=== PATIENT | male | born 1945 | race Caucasian/White ===

== ENCOUNTER → 2023-07-15 08:08 | Outpatient (REF) | payer MEDICARE, SELFPAY | LOC: HWRAD 08:08 | PROVIDERS: ATTENDING PHYSICIAN Nurse Practitioner Adult Health | DX: D44.0 Neoplasm of uncertain behavior of thyroid gland (principal) | CPT/HCPCS: 76536 ==

== ENCOUNTER 2025-02-10 13:02 | Inpatient (IN) | payer MEDICARE, SELFPAY ==
[2025-02-09 23:22] VITALS: BP 158/92
[2025-02-09 23:42] LABS: Hematocrit 38.6 % (39.0-52.0); Hemoglobin 13.9 g/dL (13.0-18.0); Mean Corp Hgb Conc. 36.0 g/dL (33.0-37.0); Mean Corpuscular Volume 93.7 fL (80.0-94.0); Platelet Count 170 10^3/uL (130-400); Red Cell Dist. Width 11.9 % (11.5-14.5)
[2025-02-10] VITALS (29 sets, daily range): BP systolic 109–165; BP diastolic 61–92
[2025-02-10 00:07] LABS: Blood Urea Nitrogen 25 mg/dl (9-20); Calcium 10.2 mg/dl (8.4-10.2); Carbon Dioxide 27 mmol/L (22-30); Chloride 110 mmol/L (98-107); Glucose 141 mg/dl (70-99); Potassium 4.3 mmol/L (3.5-5.1); Sodium 141 mmol/L (135-145); eGFR > 60.00
[2025-02-10 02:24] LABS: Urine Character Clear (Clear)
--- NOTE | 2025-02-10 02:26 | DOWNTIME ---
There was a [facility] [employer] Developer Downtime on 02/10/2025 from 0100 to 02/10/2025 at 0215. Downtime documentation of patient's care, including medication administrations, has been reconciled in the electronic record per guidelines. Refer to the
patient's paper chart under the miscellaneous tab to see printed paper medication records and downtime forms.
[2025-02-10 02:27] LABS: Urine Red Blood Cell >100 /HPF (0-2); Urine Squamous Cell 0-2 /LPF (Few); Urine White Cell 50-60 /HPF (0-5)
[2025-02-10 02:28] LABS: Urine White Cell Cast 0-2 /LPF
--- NOTE | 2025-02-10 02:47 | ED.GENMED ---
History of Present Illness
General
Chief Complaint: Abdominal Pain
Source: patient
Exam Limitations: none
Time Seen by Provider: 02/10/25 02:24
Nursing documentation reviewed up to this point in time: agreed with
History of Present Illness
History of Present Illness:
Note:
CHIEF COMPLAINT(S)
Abdominal pain and vomiting.
HISTORY OF PRESENT ILLNESS
The patient is an 79-year-old male with pmh of CVA, hlp, who presented with abdominal pain and episodes of vomiting. She reported that her symptoms began today after having lunch, subsequently experiencing nausea and vomiting, which occurred four to
five times today. She describes the abdominal pain as being localized, and it worsens upon palpation. She expressed concern over the possibility of radiating pain but did not mention any involvement of the groin. She has no known allergies to
medications but does not take morphine, although not due to an allergy. She takes fish oil and aspirin. The patient has not experienced similar pain in the past, except related to constipation. He has prior hx of appendectomy.
SOCIAL DETERMINANTS AFFECTING HEALTH
The patient expresses a degree of fear regarding the source and nature of her pain, potentially indicating stress or anxiety related to health concerns.
PHYSICAL EXAM
General: Alert, no acute distress.
Skin: Warm, dry.
Head: Normocephalic, atraumatic.
Neck: Supple, trachea midline.
Eye, Ears, Nose, Mouth, and Throat: Oral mucosa moist.
Cardiovascular: Normal peripheral perfusion, No edema.
Respiratory: Respirations are non-labored.
Gastrointestinal: Tender abdomen upon palpation, nondistended. +Left CVA tenderness.
Back: Normal range of motion, Normal alignment.
Musculoskeletal: Normal ROM, normal strength.
Neurological: Alert and oriented to person, place, time, and situation, No focal neurological deficit observed.
Psychiatric: Cooperative, mood and affect appropriate but anxious regarding his symptoms.
PROBLEM LIST
Acute:
- Abdominal pain
- Vomiting
PLAN
- Administered pain medication to manage abdominal discomfort.
- cbc, cmp, lipase
- CT ab and pelvis with IV contrast
DIFFERENTIAL DIAGNOSIS
The Differential Diagnosis includes, in no particular order and is not limited to:
1. Gastroenteritis
2. Peptic ulcer disease
3. Gallbladder disease (cholecystitis or cholelithiasis)
4. Pancreatitis
5. Small bowel obstruction
6. Mesenteric ischemia
7. Appendicitis
8. Diverticulitis
9. Renal colic
10. Abdominal aortic aneurysm (AAA)
Disposition:
SUMMARY OF ENCOUNTER
An 79-year-old male presented to the emergency department with concerns of abdominal pain and vomiting. Imaging revealed a 4 mm obstructing proximal left ureteral calculus with moderate hydronephrosis and perinephric stranding. Urinalysis indicated
the presence of white blood cells and leukocyte esterase, raising concern for infection, though the patient was afebrile. After a bedside evaluation by urology, a plan for surgical intervention later in the day was made. The patient was referred for
admission under the hospitalist service for further management.
DISPOSITION
Admit.
ASSESSMENT
The patient is experiencing obstructive uropathy due to a ureteral calculus, causing moderate hydronephrosis and potentially leading to renal complications if not addressed. There is concern for a urinary tract infection despite the absence of fever.
MANAGEMENT OF THE PATIENTS CARE WAS DISCUSSED WITH
The case was discussed with the urology team, who evaluated the patient at bedside and decided on surgical intervention. Additionally, the patients daughter was informed and updated on the plan of care.
INDEPENDENT REVIEW OF LABS AND INTERPRETATION OF TESTS
My independent review of the urinalysis indicates the presence of white blood cells and leukocyte esterase, which is concerning for a possible urinary tract infection.
PATIENT EDUCATION AND COUNSELING
The patients daughter was informed of the findings and the plan for surgical intervention. The potential need for further management should any complications arise was discussed.
MEDICAL DECISION MAKING
- Number and Complexity of Problems Addressed: Chronic conditions affecting care include the patients history of cerebrovascular accident (CVA) and hyperlipidemia. Differential diagnosis includes ureteral calculus with hydronephrosis and potential
infection.
- Data:
Category 1: My independent interpretation of the imaging showed a 4 mm proximal left ureteral calculus. Urinalysis was reviewed identifying signs of a potential urinary tract infection.
Category 3: Discussions were held with the urology team regarding the surgical plan and with the patients daughter regarding the management approach and admission for further care.
DIAGNOSIS
- Ureteral Calculus, obstructing, leading to hydronephrosis (ICD-10: N20.0)
- Potential Urinary Tract Infection (ICD-10: N39.0)
Past History
Past History
ED Past Medical History: Hypercholesterolemia and Other (Arthritis)
ED Past Surgical History: Appendectomy, Orthopedic and Other (Hernia)
Social History
Tobacco: Former smoker
Alcohol: Occasional
Drug: None
Living: alone
Review of Systems
Review of Systems
All Other Systems: ROS reviewed and negative except as documented in HPI and ROS
Phy Exam
Physical Exam
Physical Exam:
see hpi
Course
Orders/Labs/Results
Orders:
Orders
02/09/25 23:26
Abdomen Xray - 1 View [CR Abdomen - 1 View] Urgent
Comment:
Reason For Exam: abd pain
02/09/25 23:32
BMP [Basic Metabolic Panel] Urgent
Complete Blood Count/No Diff Urgent
02/10/25 01:40
Urinalysis Reflex To Culture Urgent
Urine Microscopic Reflex Cult Urgent
Urine Culture Urgent
CAROLYN Source: U
Specimen Description:
02/10/25 02:25
CT Abd/pelvis W Iv Cont Urgent
Comment:
Reason For Exam: left flank pain, llq pain
0.9% Sodium Chloride 500 ml [Nss] 500 ml IV BOLUS
Morphine Sulfate 4 mg IV NOW STA
Ondansetron Injectable [Zofran] 4 mg IV NOW STA
02/10/25 04:35
HYDROmorphone [Dilaudid] 0.5 mg IV NOW STA
02/10/25 06:25
UROLOGY CONSULT Urgent
Consulting Provider: Demetri Lovett
Was physician already notified: Yes
02/10/25 14:41
Surgical Procedure As Directed
Surgical Procedure: left ureteroscopy
Abnormal Lab Results
02/09/25 02/10/25
23:32 01:40
RBC 4.12 L 10^6/uL
(4.70-6.10)
Hct 38.6 L %
(39.0-52.0)
MCH 33.7 H pg
(27.0-31.0)
Chloride 110 H mmol/L
(98-107)
BUN 25 H mg/dl
(9-20)
Glucose 141 H mg/dl
(70-99)
Ur Occult Blood Reflex 4+ A
(Negative)
Leukocyte Esterase Rfl 1+ A
(Negative)
Urine RBC >100 A /HPF
(0-2)
Urine WBC (Reflex) 50-60 A /HPF
(0-5)
Urine Albumin (Reflex) 1+ A
(Neg - Trace)
02/09/25 23:32
02/09/25 23:32
Vital Signs
Initial and Last Documented VS:
Initial Vital Signs
Temp Pulse Resp BP Pulse Ox
98.1 F 60 26 158/92 96
02/09/25 23:22 02/09/25 23:22 02/09/25 23:22 02/09/25 23:22 02/09/25 23:22
Last Documented Vital Signs
Temp Pulse Resp BP Pulse Ox
98.1 F 96 17 138/64 94
02/09/25 23:22 02/10/25 08:00 02/10/25 08:00 02/10/25 08:00 02/10/25 08:00
*Pulse Oximetry
SaO2: 96
Oxygen Mode of Delivery: Room air
Patient hypoxic: no
*Critical Care Note
Total Time (30-74mins, 75-104mins- exclusive of procedures): Not Applicable
ED Attending Note
-
Portions of this chart may have been created with voice recognition software.� Occasional wrong word or��sound alike� substitutions may have occurred due to the inherent limitations of voice recognition software.
Discharge Plan
Departure
Patient Disposition: Admit
Date of Disposition: 02/10/25
Time of Disposition: 07:21
Admit to: Med/Surg
Presentation/result/management discussed w/ accepting MD/DO: Hospitalist
Patient with high blood pressure during this ER visit?: Yes
Condition: Fair
Discharge Problem:
Calculus of left ureter
Prescriptions:
No Action
fenofibrate 160 mg Tablet
160 mg PO DAILY
timolol maleate 0.5 % drops
1 drp BOTH EYES BID
atorvastatin 20 mg tablet
20 mg PO DAILY
Theragen Tablet
1 tab PO DAILY
omega 9-xpd-zan-fish oil [Fish Oil] 1,000 (120-180) mg Capsule
2 cap PO DAILY
Referrals:
UNKNOWN - PT DOES,NOT KNOW [Family Provider]
Interventions
Interventions:
*Risk Screen - Suicide Last Done: 02/09/25 23:22
*General Assessment Last Done: 02/10/25 07:24
*Neglect/Abuse Screening Last Done: 02/09/25 23:22
*ED- Fall Risk Assessment Last Done: 02/10/25 07:24
*ED COVID-19 Vaccine History Last Done: 02/10/25 07:24
*ED Influenza Vaccine History Last Done: 02/10/25 07:24
GI-Fdyyaa-Ndxohlaxxz Assessment Last Done: 02/10/25 07:29
Discharge Date and Time
Print Language: FRENCH
[2025-02-10] MEDS: ZOFRAN 4 MG IV (02:50)
[2025-02-10] MEDS: MORPHINE SULFATE 4 MG IV (02:50)
[2025-02-10] MEDS: NSS 500 IV (02:51)
[2025-02-10] MEDS: DILAUDID 0.5 MG IV (04:38)
--- NOTE | 2025-02-10 07:38 | CONS.URO ---
Consultation
-
Date/Time Consultation Requested: 02/10/2025 0640
Date/Time Consultation Performed: 02/10/2025 0650
Requesting Provider: ED
Performing Provider: Bony
Reason for Consultation: left ureteral stone
Medical History
History of Present Illness
79 yo male presented to ED with left flank pain.
Past Medical History
Past Medical History: Other (Hypercholesterolemia, Arthritis)
Past Surgical History: Other (Appendectomy, Orthopedic, Hernia)
Family History
Family History: Reviewed & Not Pertinent
Allergies/Home Medications
Allergies
Allergy/AdvReac Type Severity Reaction Status Date / Time
No Known Allergies Allergy Verified 02/09/25 23:24
Home Medications
�Medication �Instructions �Recorded �Confirmed �Type
fenofibrate 160 mg tablet 160 mg PO DAILY High cholesterol 10/02/17 02/10/25 History
multivitamin 1 tab PO DAILY Supplement 04/05/22 02/10/25 History
omega 6-lbu-umi-fish oil 100 1 cap PO BID Supplement 04/05/22 02/10/25 History
mg-160 mg-1,000 mg capsule (Fish
Oil)
timolol maleate 0.5 % eye drops 1 drp BOTH EYES BID Eye condition 04/05/22 02/10/25 History
Physical Exam
Vital Signs
Vital Signs
Temp Pulse Resp BP Pulse Ox
98.1 F 96 15 149/75 93
02/09/25 23:22 02/10/25 07:23 02/10/25 07:23 02/10/25 07:23 02/10/25 07:31
Lab / Testing Results
Laboratory Results
02/09/25 23:32
02/09/25 23:32
Physical Exam
General: Well Developed and No Apparent Distress
HEENT: Normocephalic
GI: Non Distended and Tender (mildly on left)
Genito-urinary: Costovertebral Angle Tend (miled, left)
Skin: Warm
Neuro: Awake
Psych: Calm
Assessment / Plan
-
Left Ureteral Stone, obstructing
posted for OR today
Data Reviewed
-
CT Scan: Image personally visualized and interpreted
Old Records: Reviewed
--- NOTE | 2025-02-10 08:21 | HPS.HSE ---
Addendum entered and electronically signed by Nelli Waddell MD 02/10/25 14:42:
see update note for addendum
Original Note:
Family Physician
-
Family Physician: Dr. Mariee
Chief Complaint
-
Left flank pain
History of Present Illness
79-year-old male with past medical history of RAVI, hyperlipidemia, CVA presented to the ER reporting left-sided flank pain.
Patient was seen along with his daughter at bedside, during the encounter patient appeared confused and slow to answer the questions, but was able to recollect most of the history about his pain. He reports that the pain was acute in onset, 11/29,
localized to the left flank and nonradiating. He remembers taking pain medication, but was not able to recall the name. Pain was associated with nausea/vomiting. No fever/chills, hematuria. No similar episodes in the past. Patient called 911
and was brought to the ER.
Medical History
Past Medical History
Past Medical History: Reports CVA and Hypercholesterolemia
Additional Past Medical History:
RAVI, glaucoma
Past Surgical History: Reports Appendectomy
Additional Past Surgical History:
right inguinal hernia repair, left shoulder repair
Social History
Tobacco: Former Smoker
Alcohol: Occasional
Drug: None
Living: Alone
Employment: Not Employed
Family History
Family History: Not pertinent
Allergies / Home Medications
Allergies reflects when Allergies were last updated in [employer].
Home Medications with original date entered in [employer]
Allergy/Medication List:
Allergies
Allergy/AdvReac Type Severity Reaction Status Date / Time
No Known Allergies Allergy Verified 02/09/25 23:24
Home Medications
fenofibrate 160 mg tablet 160 mg PO DAILY High cholesterol 10/02/17
timolol maleate 0.5 % eye drops 1 drp BOTH EYES BID Eye condition 04/05/22
atorvastatin 20 mg tablet 20 mg PO DAILY 02/10/25
omega 3-usu-kdp-fish oil 1,000 mg (120 mg-180 mg) capsule (Fish Oil) 2 cap PO DAILY 02/10/25
therapeutic multivitamin 1 tab PO DAILY 02/10/25
Review of Systems
-
A 12 point ROS was completed and negative except as noted: Yes
Physical Exam
Vital Signs
Vital Signs
Temp Pulse Resp BP Pulse Ox
98.1 F 96 17 138/64 94
02/09/25 23:22 02/10/25 08:00 02/10/25 08:00 02/10/25 08:00 02/10/25 08:00
Physical Exam
General: No Apparent Distress and Other (Appears confused)
HEENT: NormoCephalic, Moist mucous membranes and Atraumatic
Respiratory: Clear
Cardiac: S1/S2 and Regular Rhythm
GI: Soft, Non Tender, Non Distended and Normal Bowel Sounds
Genito-urinary: No costovertebral tender
Skin: Warm and Dry
Neuro: Awake, Alert and Other (AO X 2)
Psych: Confused
Laboratory Results
-
02/09/25 23:32
02/09/25 23:32
Impression/Plan
-
IMPRESSION
79-year-old male presenting with left-sided flank pain, nausea/vomiting.
PLAN:
#Left ureteral calculus
#UTI
Patient is afebrile, no elevated white count- patient is not septic
U/a with evidence of infection- leuc est +, WBC+
Urine culture pending
CT abdomen/pelvis�4 mm obstructing proximal left ureteral calculus with moderate hydronephrosis and perinephric stranding.
Urology consulted
Plan on ureteroscopic stone extraction.
N.p.o.
IV fluids
IV ceftriaxone
Adequate pain control with morphine, ketorolac, Tylenol
Monitor vitals
Monitor white count
#Delirium
Likely due to UTI versus sedating pain medications
Delirium precautions
Frequent reorientation
Monitor I&O's
#RAVI
Patient uses CPAP at home at night
Daughter says that she is going to get his home CPAP machine
#Hypercholesterolemia
Will hold off on atorvastatin, fenofibrate for now.
Diet�n.p.o.
DVT prophylaxis�SCDs
Full code
--- NOTE | 2025-02-10 09:51 | EDRN ---
Assisted with urinal - voided 375 ml - . strained, no stone. Temp 99.4. - still unsteady and not mentally sharp ( see earlier assessment). Resident notified and requersted order for Tylenol .
[2025-02-10] MEDS: OFIRMEV 100 IV (10:02)
[2025-02-10] MEDS: NSS 1000 IV ×2 (10:21→23:57)
--- NOTE | 2025-02-10 11:18 | EDCM ---
CM reviewed chart and met with pt and daughter bedside in ED. Pt lives alone, split level home, 2 [address], 6 steps to bedroom and full bath.
Independent in ADLs, personal care and ambulation at baseline. Still drives. Only DME is CPAP.
Confirms prescription coverage.
Hx [facility], no hx SNF.
PCP: Dr Mariee
Pharmacy: [facility] in [place]
CM will continue to follow for all discharge planning needs.
[2025-02-10] MEDS: STERILE WATER FOR INJECTION 10 ML IV (12:29)
[2025-02-10] MEDS: ROCEPHIN 1000 MG IV (12:29)
--- NOTE | 2025-02-10 14:37 | W.PN.UPDATE ---
Update Note
Progress Note Update
I have personally supervised the history, physical exam, medical decision-making, and care plan for this patient in conjunction with the resident. I have reviewed and discussed the resident�s documentation and findings. I confirm that this note
accurately reflects my supervision and input in the care of this patient.
Briefly 79 y/o M, hx RAVI, hyperlipidemia, CVA presented to ER yesterday evening with L flank pain, along with nausea. Also confused per daughter. In ER, found to have 4mm L sided ureteral stone with hydronephrosis along with concern for UTI. He was
seen by Urology who will plan OR today for stent procedure. IVF, IV Abx and pain meds were ordered in ER.
Physical Exam
General: No Apparent Distress and Other (Appears confused)
HEENT: Normocephalic, Moist mucous membranes and Atraumatic
Respiratory: Clear
Cardiac: S1/S2 and Regular Rhythm
GI: Soft, Non Tender, Non Distended and Normal Bowel Sounds
Genito-urinary: No costovertebral tender
Skin: Warm and Dry
Neuro: Awake, Alert and Other (AO X 2)
Psych: Confused
Assessment:
Complicated UTI in male
L ureteral stone
- CT: 5.4 mm obstructing stone within the proximal left ureter with associated moderate left-sided hydroureteronephrosis. There is asymmetric left-sided perinephric edema/stranding
- UA suggestive of UTI
- NPO/IVF
- pain control, anti-emetics
- Rocephin day 1
- Urology consulted; for OR Stenting today
TME in setting of UTI, pain meds
- monitor mentation
RAVI on CPAP
- family to bring in own machine
HLD - hold statin
DVT ppx: SCDs
Code: Full
--- NOTE | 2025-02-10 15:50 | W.IMMPOSTOP ---
Surgical Immed Post Op Note
-
Primary Surgeon: Bony
Assisting Surgeon: Greer
Pre-op Diagnosis: left ureteral stone
Post-op Diagnosis: same
Procedure Performed: left ureteroscopy, laser lithotripsy, basket extraction, stenting
Anesthesia Type: gen
Specimen / Cultures: stone fragments
Estimated Blood Loss: 1 ml
Complications: none
Operative Findings: proximal left
--- NOTE | 2025-02-10 16:50 | PTCARENOTE ---
Pt received from PACU s/p L ureteroscopy. AAOx2, disoriented to place. VSS. Remains on 2L nasal cannula at this time. IVF infusing per order. SCDs in place. Pt tolerating liquids. Assessment documented. Pt resting in bed, call cowan in reach.
[2025-02-10 18:49] LABS: Glucose - Point of Care 175 mg/dl (70-99)
--- NOTE | 2025-02-10 18:54 | W.PN.UPDATE ---
Update Note
Progress Note Update
Cross-cover--> RN and family noticed patient had more confusion, word findings difficulty, and paresthesia and asked to evaluate him. I came and evaluated him immediately. He had been having confusion all day long and paresthesia in lower legs more
pronounced in his left since 5:45p.m. Stroke alert was called. Discussed with daughters and LKN at 12 noon 02/09/2025. He does take ASA but he has been inconsistent lately and not taken over the last 2 days. No anticogulant use. No N/V/D. No CP or
SOB. No fever or chills.
P/E:
Non toxic appearance but encephalopathic
Heart RRR, S1 S2, no M/R/G
Lungs CTA B/L
Abdomen soft no tender or distended
Neuro Alert and oriented x1, power bulk and tone normal, sensory mild deficit in left distal LE, neglect in left side, Dysarthria+, DTR 2+ symmetrically, all CN intact, finger to nose test normal, +Inattention.
A/P:
Likely Toxic Metabolic encephalopathy multifactorial etiology anesthesia/meds, hospitalization, possible UTI. Less likely Stroke although not completely ruled out yet (NIH score 4 on my evaluation).
Discussed with Urology, Dr Lovett who clears him to get anticoagulation or antiplatelets as indicated.
Discussed with Neurology fellow from [facility], Dr Cortez.
Seen CT brain, CTA head and neck and CT perfusion brain and discussed findings with neurology.
Neuro recommended loading dose DAPT (aspirin 325 mg and then 81 mg and Plavix 300 mg and then 75 mg) and statin (checking fasting lipids in am) and brain MRI. Out of the time window for TNK and also non disabling symptoms at the moment.
Further recommendations upon reevaluation by primary team in a.m.
[2025-02-10 19:09] LABS: Hematocrit 39.9 % (39.0-52.0); Hemoglobin 14.0 g/dL (13.0-18.0); Mean Corp Hgb Conc. 35.1 g/dL (33.0-37.0); Mean Corpuscular Volume 95.2 fL (80.0-94.0); Platelet Count 149 10^3/uL (130-400); Red Cell Dist. Width 12.3 % (11.5-14.5)
[2025-02-10 19:19] LABS: APTT 29.0 Sec (23.4-35.0); INR 1.08; PT 14.5 Sec (11.4-14.6)
[2025-02-10 19:25] LABS: ALT (SGPT) 22 U/L (0-50); AST (SGOT) 27 U/L (17-59); Albumin 4.1 g/dl (3.5-5.0); Alkaline Phosphatase 50 U/L (38-126); Blood Urea Nitrogen 17 mg/dl (9-20); Calcium 9.0 mg/dl (8.4-10.2); Carbon Dioxide 29 mmol/L (22-30); Chloride 106 mmol/L (98-107); Glucose 183 mg/dl (70-99); Potassium 3.7 mmol/L (3.5-5.1); Sodium 141 mmol/L (135-145); Total Protein 6.6 g/dl (6.3-8.2); eGFR > 60.00
[2025-02-10 19:35] LABS: Troponin I 0.016 ng/ml
--- NOTE | 2025-02-10 19:49 | PTCARENOTE ---
At approximately 1745 pt began to complain of new b/l LE numbness. Pt was confused on admission and per daughter last known normal was 1400 the day prior. NIHSS performed at bedside. NIHSS 6 at that time (see worklist). Hospitalist notified and
cross coverage provider notified. Cross coverage came to bedside to assess pt and stroke alert was called. Pt placed on tele monitor. Vitals at time BP 147/73, HR 93, oral temp 98.2, SpO2 96% on 2L. Blood sugar 175. New PIV place, labs drawn and
sent. NIHSS performed again by rapid response team. NIHSS now 3 (One LOC question answered incorrectly, [id number]-up-dgttugam sensory loss, [id number] aphasia). Pt taken to CT for CT head, CT brain, & CT head/neck. Pt transported back to room. Pt
now in room with daughters at bedside. Report given to cold rolling machine setter RN.
[2025-02-10] MEDS: PLAVIX 300 MG PO (21:47)
[2025-02-10] MEDS: ASPIRIN 325 MG PO (21:47)
[2025-02-10] MEDS: LIPITOR 20 MG PO (21:48)
[2025-02-11 07:00] VITALS: BP 157/68
[2025-02-11] MEDS: PLAVIX 75 MG PO (08:00)
[2025-02-11] MEDS: NSS 1000 IV ×2 (08:00→16:21)
[2025-02-11] MEDS: LOW STRENGTH ASPIRIN 81 MG PO (08:00)
[2025-02-11 08:52] LABS: Blood Urea Nitrogen 17 mg/dl (9-20); Calcium 8.9 mg/dl (8.4-10.2); Carbon Dioxide 24 mmol/L (22-30); Chloride 110 mmol/L (98-107); Glucose 124 mg/dl (70-99); HDL Cholesterol 49 mg/dl; LDL Cholesterol, Calculated 47 mg/dl; Potassium 3.6 mmol/L (3.5-5.1); Sodium 138 mmol/L (135-145); Very Low Density Lipoprotein 16 mg/dl (0-30); eGFR > 60.00
--- NOTE | 2025-02-11 09:22 | CON.NEURO4 ---
Addendum entered and electronically signed by Redd Faria MD 02/12/25 08:18:
Studies reviewed.
I have personally examined the patient. I reviewed and agree with the [employer] ASSESSOR's Note.
My addenda:
Awake, alert, interactive. No acute distress.
Speech intact.
Follows 2-step requests w/o difficulty. No tremor.
Extra-ocular movements grossly intact.
Facial movements full and symmetric. Hearing intact to normal conversational volume.
Normal UE movements bilaterally.
Neck: full ROM.
Chest: no dyspnea
Heart: no JVD
Ext: (-) Clubbing, (-) Cyanosis, (-) Edema
IMPRESSIONS/RECOMMENDATIONS:
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
Check blood work for potential metabolic causes
Check MRI of brain
Check MRA head and neck due to suggestion of occlusion by CT angiogram
Patient may require medications for memory stabilization as an outpatient
Neuropsych testing done as an outpatient
D/W patient
Will continue to follow as needed.
Original Note:
Documented by User: Xiomara Alvarado NP 02/11/25 10:58
Consultation - Neurology 4
-
CONSULTING PHYSICIAN: Redd Faria MD
REFERRING PHYSICIAN: Hospitalists/Dr. Waddell
DICTATED BY: BOB Love
DATE/TIME OF REQUEST: 02/11/25
DATE/TIME OF CONSULTATION: 02/11/25
Reason for Consultation: Stroke Alert
History of Present Illness:
This is a 79-year-old male who has presented to the hospital on 02/10/25 with report of nausea, vomiting, and abdominal pain. Imaging demonstrated a 4mm obstructing proximal left ureteral calculus with moderate hydronephrosis and he underwent left
ureteroscopy, laser lithotripsy, and stenting yesterday afternoon. In the evening he was noted by family to be confused, have word finding difficulty, and noted bilateral lower extremity tingling, more prominent in his left leg, prompting a stroke
alert to be activated. CT head and CT brain perfusion were obtained and are negative for any acute abnormalities. CTA head/neck was suggestive of an occlusion of the intradural segment of the left vertebral artery. He was outside of the time window
for TNK, no LVO for IAT. Today (02/11/25), patient does not recall this event. He endorses that his left foot felt numb and he thinks he was agitated towards staff, but otherwise cannot recall any details. He reports feeling at his baseline
currently. He denies any headache, dizziness, vision changes, swallowing difficulty, numbness, and weakness. He notes that at baseline people have difficultly understanding what he says. He endorses having another confusion episode associated with
vision blurriness in April 2023. MRI brain was negative at that time and he reports this was deemed a TIA. He completed 21 days of DAPT and then continued on aspirin 81mg monotherapy, he had missed his dose the past two days. He is followed by
[facility] Dr. Hill and Dr. Wilson as an outpatient. 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
Past Medical History: TIA, HLD, glaucoma, RAVI (cpap)
Surgical History: Appendectomy
Family History: Reviewed and noncontributory.
Social History: Former smoker. Occasional alcohol. Denies illicit drug use.
Allergies: No known allergies.
Home Medications: See below.
Review of Symptoms:
Patient denies any fever, headache, chest pain, shortness of breath, GI or symptoms.
�Per the HPI.�All systems are reviewed negative except above.
Physical Exam:
The patient is afebrile, abdomen is nondistended, breathing is unlabored, skin is warm and dry, no edema. Hematoma on left side of tongue.
NIH Stroke Scale:
I performed the NIH stroke scale on the patient on 02/11/25 at 0920. The patient scored 0 points on the NIH stroke scale assessment, which were assigned as follows: See below.
Neurologic Examination:
The patient is awake, alert and oriented x 3. Next holiday- Halloween, Thanksgiving. Most recent holiday- October 23. He is able to follow commands and answer questions appropriately. There is no aphasia or dysarthria. On cranial nerve assessment,
pupils are 3 mm bilateral, round and reactive to light and accommodation. Visual ponce are full. Extraocular movements are intact. Facial sensations are intact and bilaterally symmetrical, there is no facial asymmetry. Hearing is intact bilaterally
to normal conversation volume. Tongue palate and uvula are midline. Sternocleidomastoid strengths are full bilaterally. Motor strengths are 5/5 bilateral upper and lower extremities on medical research [place] scale. There is no drift or
involuntary movement noted. Deep tendon reflexes are 2+ bilateral upper and lower extremities and Babinski is absent bilaterally. There was no extinction noted on double simultaneous stimulation. Coordination is intact by finger to nose
bilaterally.
Lab Results: See below.
Neuro Imaging:
1. CT head 02/10/25: No CT evidence for acute intracranial hemorrhage or transcortical infarct. Moderate bilateral frontal and parietal lobe volume loss. Mild white matter leukoaraiosis. ASPECT score: 10.
2. CTA head/neck 02/10/25: No CTA evidence for stenosis or occlusion in either internal carotid artery. 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 Multinodular thyroid goiter. Severe
discogenic degenerative disease and 3 mm retrolisthesis of C3/C4 causing mild spinal cord compression and central canal stenosis. 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 Diagnostic
possibilities are (1) congenital variant, (2) thrombotic occlusion, or (3) intracranial vertebral artery dissection.
3. CT Brain perfusion 02/10/25: CBF 0ml, Tmax 0ml.
Differentials for the patient's presentation include:
1. Confusional event was likely due to toxic metabolic encephalopathy in the setting of underlying cognitive impairment.
2. Low concern for TIA or stroke but cannot entirely exclude this. Left vertebral artery abnormality is likely an anatomical variant but need further imaging to rule out chronic occlusion vs dissection.
3. Small hematoma on left later aspect of tongue, possibly related to intubation, cannot entirely exclude seizure but low concern.
Patient has the following risk factors for their symptoms: Surgery, age, hx confusional episode
IV Tenecteplase/IAT candidacy: He was outside of the time window for TNK, no LVO for IAT.
Recommendations:
-Continue DAPT with aspirin 81mg and clopidogrel 75mg daily for 21 days. After 21 days, stop clopidogrel and continue aspirin 81mg daily indefinitely.
-Goal normotension.
-MRI brain noncontrast and MRA COW pending.
-Routine EEG pending.
-Checking blood work for metabolic abnormalities.
-LDL goal <70. LDL is 47. Continue home atorvastatin 20mg daily as LDL is at goal.
-Goal normoglycemia.
-PT/OT/ST evaluations.
-Neuropsychological testing as an outpatient.
-Follow-up with patient's outpatient neurologist.
-DVT prophylaxis.
Discussed patient care with: Dr. Faria, the patient
Vital Signs and Labs
-
Vital Signs and Labs:
Vital Signs
Temp Pulse Resp BP Pulse Ox
97.8 F 89 17 157/68 97
02/11/25 07:00 02/11/25 07:00 02/11/25 07:00 02/11/25 07:00 02/11/25 07:00
Lab Results
02/11/25 07:36
PT 14.5 Sec (11.4-14.6) 02/10/25 18:59
INR 1.08 02/10/25 18:59
APTT 29.0 Sec (23.4-35.0) 02/10/25 18:59
Sodium 138 mmol/L (135-145) 02/11/25 07:36
Potassium 3.6 mmol/L (3.5-5.1) 02/11/25 07:36
BUN 17 mg/dl (9-20) 02/11/25 07:36
Glucose 124 mg/dl (70-99) H 02/11/25 07:36
Calcium 8.9 mg/dl (8.4-10.2) 02/11/25 07:36
LDL Cholesterol, Calc 47 mg/dl 02/11/25 07:36
Medications
-
Active Medications
Generic Name Dose Route Start Last Admin
Trade Name Freq PRN Reason Stop Dose Admin
Acetaminophen 650 mg 02/10/25 14:43
Acetaminophen 325 Mg Tablet PO 03/10/25 14:42
Q4HPRN PRN
mild pain/TOMLIN/temp> 100.4F
Aspirin 81 mg 02/11/25 08:00 02/11/25 08:00
Aspirin 81 Mg Chewable Tablet PO 03/11/25 07:59 81 mg
DAILY DEEP Administration
Atorvastatin Calcium 20 mg 02/10/25 21:00 02/10/25 21:48
Atorvastatin (Lipitor) 20 Mg Tablet PO 03/10/25 20:59 20 mg
QPM DEEP Administration
Bisacodyl 10 mg 02/10/25 14:43
Bisacodyl 10 Mg Rectal Suppository RECTAL 03/10/25 14:42
[id number] PRN
constipation
Clopidogrel Bisulfate 75 mg 02/11/25 08:00 02/11/25 08:00
Clopidogrel 75 Mg Tablet PO 03/11/25 07:59 75 mg
DAILY DEEP Administration
Fentanyl Citrate 25 mcg 02/10/25 13:26
Fentanyl (50 Mcg/Ml) 100 Mcg/2 Ml Ampul IV 02/11/25 13:26
[id number] PRN
shivers
Hydromorphone HCl 0.5 mg 02/10/25 13:26
Hydromorphone 0.5 Mg/0.5 Ml Syringe IV 02/11/25 13:26
PACU-Q5MPRN PRN
severe pain
Hydromorphone HCl 0.25 mg 02/10/25 13:26
Hydromorphone 0.25 Mg/0.5 Ml Syringe IV 02/11/25 13:26
PACU-Q5MPRN PRN
moderate pain
Sodium Chloride 1,000 mls @ 100 mls/hr 02/10/25 10:14 02/11/25 08:00
Nss IV 1,000 mls
.Q10H DEEP Administration
Parenteral Electrolytes 1,000 mls @ 100 mls/hr 02/10/25 13:30
Normosol-R/Plasmalyte-A IV 02/11/25 13:26
PER PROTOCOL DEEP
Ketorolac Tromethamine 15 mg 02/10/25 10:11
Ketorolac 15 Mg/Ml Injection IV 02/15/25 10:10
Q6HPRN PRN
moderate pain
Ondansetron HCl 4 mg 02/10/25 10:11
Ondansetron 4 Mg/2 Ml Vial IV 03/10/25 10:10
Q6HPRN PRN
NAUSEA/VOMITING
Ondansetron HCl 4 mg 02/10/25 13:26
Ondansetron 4 Mg/2 Ml Vial IV 02/11/25 13:26
PACU-ONCEPRN PRN
nausea/vomiting
Polyethylene Glycol 17 grams 02/10/25 14:43
Polyethylene Glycol Powder 17 Grams Packet PO 03/10/25 14:42
DAILYPRN PRN
constipation
Prochlorperazine Edisylate 5 mg 02/10/25 13:26
Prochlorperazine 10 Mg/2 Ml Vial IV 02/11/25 13:26
PACU-ONCEPRN PRN
nausea/vomiting
Senna/Docusate Sodium 1 tablet 02/10/25 14:43
Docusate W/Senna (Sabrina-Colace) Tablet PO 03/10/25 14:42
BIDPRN PRN
constipation
Sodium Chloride 0 flush 02/10/25 11:00
Sodium Chloride 0.9% (Flush) Syringe IV 03/10/25 10:59
PER PROTOCOL DEEP
Home Medications
�Medication �Instructions �Recorded
fenofibrate 160 mg tablet 160 mg PO DAILY High cholesterol 10/02/17
timolol maleate 0.5 % eye drops 1 drp BOTH EYES BID Eye condition 04/05/22
atorvastatin 20 mg tablet 20 mg PO DAILY 02/10/25
omega 8-yxc-akw-fish oil 1,000 mg 2 cap PO DAILY 02/10/25
(120 mg-180 mg) capsule (Fish Oil)
therapeutic multivitamin 1 tab PO DAILY 02/10/25
NIH Stroke Score
Subsequent NIH Scale
Date of Subsequent NIH Scale: 02/11/25
Time of Subsequent NIH Scale: 09:20
NIH Stroke Score
Level of Consciousness: 0 - Alert
LOC Questions: 0-Answers both correctly
LOC Commands: 0-Performs both correctly
Best Horizontal Gaze: 0-Normal
Visual Ponce: 0=Normal, no visual loss
Facial Palsy: 0=Normal, symmetrical
Motor - Right Arm: 0=No drift 10 seconds
Motor - Left Arm: 0=No drift 10 seconds
Motor - Right Le-No drift 5 seconds
Motor - Left Le-No drift 5 seconds
Limb Ataxia: 0-Absent
Sensation: 0-Normal
Best Language: 0-No aphasia
Dysarthria: 0-Normal
Extinction and Inattention: 0-No abnormality
NIH Total Score:: 0
Modified [place] (mRS) Score
Modified [place] Scale (mRS): No symptoms
Score: 0
Alteplase Contraindication
Inclusion and Exclusion criteria reviewed: Yes

Documented by User: Redd Faria MD 02/11/25 10:59
NIH Stroke Score
NIH Stroke Score
NIH Total Score:: 0
Modified [place] (mRS) Score
Score: 0
[2025-02-11 09:28] LABS: Hematocrit 39.7 % (39.0-52.0); Hemoglobin 14.1 g/dL (13.0-18.0); Mean Corp Hgb Conc. 35.5 g/dL (33.0-37.0); Mean Corpuscular Volume 96.4 fL (80.0-94.0); Platelet Count 170 10^3/uL (130-400); Red Cell Dist. Width 11.9 % (11.5-14.5)
[2025-02-11 09:41] VITALS: BP 141/70; PULSE 107; O2SAT 97
[2025-02-11 09:43] VITALS: BP 141/70; O2SAT 98
--- NOTE | 2025-02-11 10:05 | PTOTSP ---
Speech Language Pathology
Pt seen for speech/language evaluation via the Quick Aphasia Battery (QAB), form 1. Pt with mild dysarthria. However, he states this is his normal speech, and his brother is always telling him to slow down. Bruise noted on L lateral lingual
surface. Slight lingual deviation to the L noted. Cognition not formally addressed this session, but pt with decreased insight into deficits and was impulsive/easily distractible during evaluation. On QAB, pt with overall score of 9.10,
indicative of overall language skills WFL. However, pt with score of 7.50 on word finding subtest (indicative of mild deficits) and score of 7.08 on reading subtest (indicative of moderate deficits). After evaluation completed (EDITOR SOUND had been in
room for 25 minutes), pt stated 'Why are you here?'
Pt also seen for clinical bedside swallow evaluation. P.O. trials of regular solids and thin liquids provided. Adequate mastication, bolus formation, and A-P transit noted with no oral residue. No overt signs of aspiration.
Recommend:
(1) Regular solids/thin liquids
(2) General aspiration precautions
(3) Meds as tolerated
(4) EDITOR SOUND to follow for cognitive-linguistic tx. Further dysphagia tx not indicated.
--- NOTE | 2025-02-11 10:19 | W.PN.URO.CBU ---
Today's Communication / Plan
-
urologically stable and fit for discharge
Assessment / Plan
-
stable s/p left ureteroscopy, laser lithotripsy, basket extraction, stenting
Diagnosis
-
Date of Service: February 11, 2025
-
Patient Diagnosis: left ureteral stone s/p left ureteroscopy, laser lithotripsy, basket extraction, stenting
Post Op Day: 1
Subjective
-
no gu sx
Objective
-
Vital Signs
Temp Pulse Resp BP Pulse Ox
97.8 F 89 17 157/68 97
02/11/25 07:00 02/11/25 07:00 02/11/25 07:00 02/11/25 07:00 02/11/25 07:00
Intake and Output
02/10/25 02/11/25 02/12/25
06:59 06:59 06:59
Intake Total 1640 / 1640
Output Total 200 / 200 550 / 550
Balance -200 / -200 1090 / 1090
Intake:
Oral fluids 540 / 540
IV fluids (Total) 1100 / 1100
Normosol 100 / 100
Output:
Urine, Voided 200 / 200 550 / 550
Other:
How many times incontinent 1
SMALL amount urine
Laboratory Results
02/11/25 09:15
02/11/25 07:36
Physical Exam
-
General - well developed, well nourished, no acute distress
more intelligible communication today
--- NOTE | 2025-02-11 11:57 | W.PN.HOSP.TC ---
Today's Communication/Plan
-
continue DAPT x 3 weeks, then ASA alone
continue Abx
DC planning
Assessment / Plan
Assessment / Plan
Assessment:
Confusion
LLE paresthesia
- CT head: No CT evidence for acute intracranial hemorrhage or transcortical infarct. Moderate bilateral frontal and parietal lobe volume loss.
- MRI brain: Moderate age-related parenchymal atrophy, again most pronounced in the bilateral frontal and parietal lobes. Small amount of T2/FLAIR hyperintense signal in the white matter of the bilateral cerebral hemispheres, most compatible with
mild chronic microangiopathic ischemia. No mass effect, midline shift, or extra axial collection. No abnormal signal intensity on diffusion-weighted images.
- EEG without evidence of seizure
- metabolic workup pending
- continue DAPT x 21 days, then ASA daily
- continue statin
- Neuro consulting
- PT/OT/ST - outpatient therapy
- OP Neuro-psych testing for possible underlying dementia
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
- Diagnostic possibilities are (1) congenital variant, (2) thrombotic occlusion, or (3) intracranial vertebral artery dissection
- MRA confirms anatomic variant; no stenosis/occlusion in [place]
Lateral tongue small hematoma
- suspected related to intubation for procedure
Complicated UTI in male
L ureteral stone
- CT: 5.4 mm obstructing stone within the proximal left ureter with associated moderate left-sided hydroureteronephrosis. There is asymmetric left-sided perinephric edema/stranding
- s/p left ureteroscopy, laser lithotripsy, basket extraction, stenting 02/10. Eventual OP stent removal
- Urology following
- Urine culture NGTD - will continue Rocephin, day 210 for now with elevated WBCs
- continue IVF
- pain control, anti-emetics
RAVI on CPAP
- family to bring in own machine
HLD - hold statin
DVT ppx: SCDs
Code: Full
Anticipated Discharge: Within 24 hours
Subjective/Interval History
-
Date of Service: February 11, 2025
s/p Urology procedure last evening (stone extraction, stenting)
later that evening - stroke alert called for confusion, word finding difficulty and LLE paraesthesia
Objective Data
-
Labs:
Laboratory Results
02/11/25 02/11/25
07:36 09:15
WBC Cancelled 12.9 H
Hgb Cancelled 14.1
Hct Cancelled 39.7
Plt Count Cancelled 170
Sodium 138
Potassium 3.6
Chloride 110 H
Carbon Dioxide 24
BUN 17
Creatinine 0.7
Glucose 124 H
Calcium 8.9
Vital Signs:
Vital Signs
Temp Pulse Resp BP Pulse Ox
97.8 F 89 17 157/68 97
02/11/25 07:00 02/11/25 07:00 02/11/25 07:00 02/11/25 07:00 02/11/25 07:00
I&O
02/10/25 02/11/25 02/12/25
06:59 06:59 06:59
Intake Total 1640 / 1640
Output Total 200 / 200 550 / 550
Balance -200 / -200 1090 / 1090
Physical Exam
-
General: No Apparent Distress
HEENT: Normocephalic and Atraumatic
Respiratory: Other; Negative Wheezes
Cardiac: Regular Rhythm and S1/S2
GI: Soft and Nontender
Neuro: AO x 3
Psych: Calm
Data Reviewed
-
Total Time Spent with Patient (in minutes): 41
Labs: Labs Reviewed by me
--- NOTE | 2025-02-11 13:29 | EEG.RPT ---
Electroencephalogram Report
Recording
Date of EE02/11/25
Type of EEG: Routine
Length of EEG recordin minutes
Done with Video Recording: Yes
Patient Status: Inpatient
Recording Conditions: Awake, Drowsy and Asleep
Hyperventilation Performed: No
Photic Stimulation Performed: Yes
Report
GREATER THAN 1 HOUR REPORT
EEG INTERPRETATION:
Likely unremarkable EEG for age in wakefulness and sleep
CLINICAL CORRELATION:
Although normative values not been established for a person of this advanced age this study was unremarkable in its appearance.
An unremarkable EEG does not rule out a diagnosis of epilepsy. If clinical suspicion for seizure persists, a prolonged recording may be warranted.
Clinical correlation is advised.
METHODS:
A 21 channel digitized electroencephalogram (EEG) was performed in the [facility] Neurophysiology Laboratory. The 10/20 international system of electrode placement was used with ECG and lateral/vertical eye movements recorded.
ELECTROENCEPHALOGRAPHER IMPRESSION(S):
Quality of study
Good
Background
There was an unremarkable anterior-posterior voltage gradient of alpha frequency.
There were no significant asymmetries of background activity noted.
Sleep
Drowsiness present
Stage I present
Hyperventilation
Not performed
Photic Stimulation
Failed to activate the record
ECG
Unremarkable
[2025-02-11] MEDS: VITAMIN B-12 1000 MCG PO (14:20)
[2025-02-11] MEDS: VITAMIN B1 100 MG PO (14:20)
[2025-02-11 15:11] LABS: Ferritin 244.0 ng/ml (17.9-464.0)
[2025-02-11 15:15] VITALS: BP 152/67
[2025-02-11 15:42] LABS: Folate > 20.0 ng/ml (2.76-20); Vitamin B12 462 pg/ml (239-931)
[2025-02-11] MEDS: LIPITOR 20 MG PO (18:03)
[2025-02-11 23:26] VITALS: BP 149/83
[2025-02-12 03:50] VITALS: BP 147/79
[2025-02-12] MEDS: SENOKOT-S 1 TABLET PO (06:07)
[2025-02-12 07:12] VITALS: BP 143/70
[2025-02-12] MEDS: LOW STRENGTH ASPIRIN 81 MG PO (08:16)
[2025-02-12] MEDS: VITAMIN B1 100 MG PO (08:16)
[2025-02-12] MEDS: VITAMIN B-12 1000 MCG PO (08:16)
[2025-02-12 08:41] LABS: Hematocrit 40.7 % (39.0-52.0); Hemoglobin 13.7 g/dL (13.0-18.0); Mean Corp Hgb Conc. 33.7 g/dL (33.0-37.0); Mean Corpuscular Volume 99.8 fL (80.0-94.0); Platelet Count 147 10^3/uL (130-400); Red Cell Dist. Width 12.0 % (11.5-14.5)
[2025-02-12 09:02] LABS: Blood Urea Nitrogen 16 mg/dl (9-20); Calcium 8.6 mg/dl (8.4-10.2); Carbon Dioxide 26 mmol/L (22-30); Chloride 108 mmol/L (98-107); Glucose 100 mg/dl (70-99); Potassium 3.5 mmol/L (3.5-5.1); Sodium 141 mmol/L (135-145); eGFR > 60.00
--- NOTE | 2025-02-12 10:18 | PTCARENOTE ---
Work note and script for PT/OT in patient's chart, when he is ready for discharge to home
[2025-02-12 11:02] VITALS: BP 137/64
--- NOTE | 2025-02-12 11:04 | CM ---
CM reviewed chart, patient seen in chair, hopeful for d/c today.
Patient will need script for outpatient therapy upon d/c
Patient confirms transportation home.
IMM verbally reviewed, provided with copy, placed in chart.
CM will continue to follow.
Plan; home with script for outpatient therapy
--- NOTE | 2025-02-12 13:09 | W.PN.HOSP.TC ---
Today's Communication/Plan
-
dc home
Assessment / Plan
Assessment / Plan
Assessment:
Confusion
LLE paresthesia
- CT head: No CT evidence for acute intracranial hemorrhage or transcortical infarct. Moderate bilateral frontal and parietal lobe volume loss.
- MRI brain: Moderate age-related parenchymal atrophy, again most pronounced in the bilateral frontal and parietal lobes. Small amount of T2/FLAIR hyperintense signal in the white matter of the bilateral cerebral hemispheres, most compatible with
mild chronic microangiopathic ischemia. No mass effect, midline shift, or extra axial collection. No abnormal signal intensity on diffusion-weighted images.
- EEG without evidence of seizure
- metabolic workup unremarkable
- continue ASA daily
- continue statin
- PT/OT/ST - outpatient therapy
- OP Neuro-psych testing for possible underlying dementia
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
- Diagnostic possibilities are (1) congenital variant, (2) thrombotic occlusion, or (3) intracranial vertebral artery dissection
- MRA confirms anatomic variant; no stenosis/occlusion in [place]
Lateral tongue small hematoma
- suspected related to intubation for procedure
Complicated UTI in male
L ureteral stone
- CT: 5.4 mm obstructing stone within the proximal left ureter with associated moderate left-sided hydroureteronephrosis. There is asymmetric left-sided perinephric edema/stranding
- s/p left ureteroscopy, laser lithotripsy, basket extraction, stenting 02/10. Eventual OP stent removal
- Urology following
- Urine culture NGTD - will continue Cefdinir to complete 10 day course
- continue IVF
- pain control, anti-emetics
RAVI on CPAP
- family to bring in own machine
HLD - resume statin
DVT ppx: SCDs
Code: Full
More than 30 minutes spent in discharge including
Final examination of the patient
Summarizing hospital stay
Instructions for continuing care to all relevant caregivers
Preparation of discharge records, prescriptions, and referral forms
Total time spent (in minutes): 41
Anticipated Discharge: Today
Subjective/Interval History
-
Date of Service: February 12, 2025
resting comfortably, no complaints
Objective Data
-
Labs:
Laboratory Results
02/12/25
08:10
WBC 10.5
Hgb 13.7
Hct 40.7
Plt Count 147
Sodium 141
Potassium 3.5
Chloride 108 H
Carbon Dioxide 26
BUN 16
Creatinine 0.7
Glucose 100 H
Calcium 8.6
Vital Signs:
Vital Signs
Temp Pulse Resp BP Pulse Ox
97.8 F 78 18 137/64 99
02/12/25 11:02 02/12/25 11:02 02/12/25 11:02 02/12/25 11:02 02/12/25 11:02
I&O
02/11/25 02/12/25 02/13/25
06:59 06:59 06:59
Intake Total 1640 / 1640 6540 / 6540
Output Total 550 / 550 900 / 900 250 / 250
Balance 1090 / 1090 5640 / 5640 -250 / -250
Physical Exam
-
General: No Apparent Distress
HEENT: Normocephalic and Atraumatic
Respiratory: Clear to Auscultation; Negative Wheezes
Cardiac: Regular Rhythm and S1/S2
GI: Soft and Nontender
Neuro: AO x 3
Psych: Calm
Data Reviewed
-
Total Time Spent with Patient (in minutes): 41
Labs: Labs Reviewed by me
--- NOTE | 2025-02-12 13:11 | W.DCSUMMARY ---
Discharge Summary
Discharge Data
Date of Admission: 02/10/25
Date of Discharge: 02/12/25
-
Pending Results: No
Hospital Course
79 y/o M with RAVI presented to ER with L flank pain. CT showed 5.4 mm obstructing stone within the proximal left ureter with associated moderate left-sided hydroureteronephrosis. Patient went to the OR left ureteroscopy, laser lithotripsy, basket
extraction, stenting on 02/10. He will have follow up with Urology in 2 weeks for stent removal. He was discharged on antibiotics for 10 days.
He also had a stroke alert after his procedure; his CT was negative. CTA suggested vertebral artery occlusion but MRA showed anatomic variant. MRI was negative. EEG was negative. He was placed on Aspirin. He will have OP neurocognitive testing with
Neurology for consideration of possible dementia given MRI showed Moderate age-related parenchymal atrophy most pronounced in the bilateral frontal and parietal lobes.
He was discharged to home on 02/12 with outpatient therapy evals and PCP/Neuro f/u.
Discharge Plan
-
Patient Disposition: Home (Routine Discharge)
Discharge Diagnosis/Procedures: left ureteral stone s/p ureteroscopy, laser lithotripsy, stone fragment removal, stent insertion. Cognitive decline transient - no stroke or seizure
Condition: Fair
Diet: As tolerated and Low Cholesterol
Activity: No restrictions
Driving Restrictions: Not until seen by your Dr
Bathing Restrictions: None
Other Services: PT and OT
Referrals:
Zofia Mariee CRNP [Specified Professional Personl, Neurology] - in three to four weeks
Referral Note: for neuro-cognitive testing
Demetri Lovett MD [Active, Urology]
Referral Note: call on 02/11 to schedule 'stent removal' in 9-16 days
Florencio Mariee DO [Non-Admitting Privileges, Family Practice] - in one week
UNKNOWN - PT DOES,NOT KNOW [Family Provider]
Prescriptions:
New
aspirin 81 mg Tablet,Chewable
81 mg PO DAILY Qty: 100 0RF
cyanocobalamin (vitamin B-12) 500 mcg Tablet
1,000 mcg PO DAILY Qty: 100 0RF
thiamine mononitrate (vit B1) 100 mg Tablet
100 mg PO DAILY Qty: 100 0RF
cefdinir 300 mg capsule
300 mg PO Q12H Qty: 16 0RF
Continued
fenofibrate 160 mg Tablet
160 mg PO DAILY
timolol maleate 0.5 % drops
1 drp BOTH EYES BID
atorvastatin 20 mg tablet
20 mg PO DAILY
Theragen Tablet
1 tab PO DAILY
omega 3-baw-lnw-fish oil [Fish Oil] 1,000 (120-180) mg Capsule
2 cap PO DAILY
Discharge Orders:
Discharge Patient (As Directed); Ordered 02/12/25
Ordered By: Nelli Waddell
Discharge Date and Time
Print Language: DIVEHI
[2025-02-12 15:12] VITALS: BP 125/69
[2025-02-12 17:03] VITALS: BP 133/68; PULSE 91; O2SAT 98
== END 2025-02-12 15:30 | disposition home or self-care (01) | DRG 659 ==
LOC: 4 WEST ACU 13:02
PROVIDERS: Hospitalist; Student in an Organized Health Care Education/Training Program; ADMITTING PHYSICIAN Internal Medicine; CONSULT PHYSICIAN Psychiatry & Neurology Neurology; CONSULT PHYSICIAN Specialist; EMERGENCY PHYSICIAN Student in an Organized Health Care Education/Training Program
PROC: 0TC78ZZ Extirpation of Matter from Left Ureter, Via Natural or Artificial Opening Endoscopic (ICD-10-PCS; 2025-02-10)
PROC: 0T778DZ Dilation of Left Ureter with Intraluminal Device, Via Natural or Artificial Opening Endoscopic (ICD-10-PCS; 2025-02-10)
DX: N13.6 Pyonephrosis (principal); G92.8 Other toxic encephalopathy; F02.811 Dementia in other diseases classified elsewhere, unspecified severity, with agitation; E78.00 Pure hypercholesterolemia, unspecified; G31.83 Neurocognitive disorder with Lewy bodies; I65.02 Occlusion and stenosis of left vertebral artery; M19.90 Unspecified osteoarthritis, unspecified site; G47.33 Obstructive sleep apnea (adult) (pediatric); T39.016A Underdosing of aspirin, initial encounter; Z60.2 Problems related to living alone; Z87.891 Personal history of nicotine dependence; Z90.49 Acquired absence of other specified parts of digestive tract; Z86.73 Personal history of transient ischemic attack (TIA), and cerebral infarction without residual deficits; Z79.82 Long term (current) use of aspirin; Z91.148 Patient's other noncompliance with medication regimen for other reason; Y92.9 Unspecified place or not applicable
CPT/HCPCS: 0042T; 70450; 70496; 70498; 70544; 70551; 74018; 74177; 76000; 80048; 80053; 80061; 81003; 81015; 82248; 82365; 82607; 82728; 82746; 82962; 84439; 84443; 84484; 85027; 85610; 85730; 87086; 92523; 92610; 95813; 97129; 97162; 97166; 97530; C1758; C1769; C1894; C2617; Q9967